=== PATIENT | female | born 1990 | race Caucasian/White ===

== ENCOUNTER 2019-09-25 11:20 | Emergency (ER) | payer OTHER ==
[~2019-09-25] VITALS: Ht 162.6 cm; Wt 94.8 kg
[2019-09-25 11:36] VITALS: Ht 162.6 cm; Wt 94.8 kg
[2019-09-25 12:40] LABS: BASOPHIL % 0.4 % (0-2); PLATELET COUNT 342 x10^3mcL (130-400); RED CELL DISTRIBUTION WIDTH 13.8 % (11.5-14.5)
[2019-09-25 12:43] LABS: CALCIUM 8.2 mg/dL (8.5-10.1); CARBON DIOXIDE 25.2 mmol/L (21-32); CHLORIDE SERUM 105 mmol/L (98-107); CREATININE SERUM 0.8 mg/dL (0.6-1.0); GFR1 > 60 mL/min; GLUCOSE SERUM 117 mg/dL (74-106); POTASSIUM SERUM 3.6 mmol/L (3.5-5.1); SODIUM SERUM 140 mmol/L (136-145)
[2019-09-25 12:47] LABS: ALBUMIN 3.6 g/dL (3.4-5.0); ALKALINE PHOSPHATASE 81 U/L (46-116); ALT/SGPT 71 U/L (14-59); AST/SGOT 24 U/L (15-37); BILIRUBIN TOTAL 0.29 mg/dL (0.20-1.00); LIPASE 97 IU/L (73-393); TOTAL PROTEIN, SERUM 7.5 g/dL (6.4-8.2)
[2019-09-25 16:40] VITALS: BP 128/74
== END 2019-09-25 16:40 | disposition home or self-care (01) ==
LOC: ED 11:20
PROVIDERS: Emergency Medicine
DX: R10.814 Left lower quadrant abdominal tenderness (principal); R11.2 Nausea with vomiting, unspecified; Z98.51 Tubal ligation status
CPT/HCPCS: 36415; J7030